=== PATIENT | female | born 1985 | race Hispanic/Latino ===

== ENCOUNTER → 2017-02-08 | Outpatient (CLI) | payer SELFPAY ==
--- NOTE | 2017-02-08 11:41 | Diagnostic Imaging Report ---
EXAMINATION: Hepatic ultrasound. INDICATION: Increased ALT. FINDINGS: The visualized portions of the pancreas appear unremarkable. The liver is fairly homogeneous with no focal lesion seen. Hepatopetal flow in the portal vein is noted. The gallbladder demonstrates no stones or wall thickening. No pericholecystic fluid. The sonographic Zavaleta sign is reportedly negative. The CBD is 5 mm in caliber. The right kidney is 12.8 cm in length with no hydronephrosis or focal lesion. IMPRESSION: Unremarkable exam. Dictated by: Dictated on workstation # [id number]
== END ==
LOC: RAD 08:43
PROVIDERS: ATTEND Family Medicine
DX: R74.0 Nonspecific elevation of levels of transaminase and lactic acid dehydrogenase [LDH] (principal)
CPT/HCPCS: 76705

== ENCOUNTER 2017-03-13 12:53 | Outpatient (CLI) | payer SELFPAY ==
--- NOTE | 2017-03-14 15:54 | Physician Query-Final Dx ---
JENNIFER LONG 03/14/17 1554: Clinic Account Progress/Dx Physician Query: Please give diagnosis Date of Service Mar 13, 2017 at 12:53 EARNEST FITZGERALD MD 03/16/17 0720: Clinic Account Progress/Dx DIAGNOSIS: Diagnosis 1. Decreased movement--reassuring 2. Intrauterine at 15 weeks gestation JENNIFER LONG Mar 14, 2017 15:54 EARNEST FITZGERALD MD Mar 16, 2017 07:20
== END 2017-03-13 13:02 | disposition home or self-care (01) ==
LOC: LDRP 12:53 → WSo 12:53
PROVIDERS: ATTEND Family Medicine
DX: O36.8120 Decreased fetal movements, second trimester, not applicable or unspecified (principal); Z3A.15 15 weeks gestation of pregnancy
CPT/HCPCS: 99212

== ENCOUNTER → 2017-04-28 | Outpatient (CLI) | payer MEDICAID ==
--- NOTE | 2017-04-28 15:23 | Diagnostic Imaging Report ---
INDICATION: survey. TECHNIQUE: Multiple real-time grayscale images were obtained over the gravid uterus. COMPARISON: None FINDINGS: There is a single live fetus in a variable presentation. The cervical length is 3.4 cm. Placenta is posterior. The amniotic fluid volume appears to be normal. survey demonstrates the kidneys, bladder and stomach to be unremarkable. brain posterior fossa evaluation was limited due to position. In addition, the four-chamber heart view and spine is somewhat limited. The cord insertion was visualized and unremarkable. There is a three-vessel cord. Biometrical measurements are as follows: Biparietal 4.77 cm, age 20 weeks 3 days. Head circumference 17.10 cm, age 19 weeks 5 days. Abdominal circumference 15.12 cm, age 20 weeks 3 days. Femur length 3.37 cm, age 20 weeks 4 days. Sonographic estimate age: 20 weeks 2 days. Sonographic estimated date of delivery: 09/13/2017. Estimated Weight: 350 gm (+/- 51 gm). LMP percentile: 50%. heart rate: 167 beats per minute. number: 1 of 1. IMPRESSION: Single live IUP 20 weeks 2 days gestational age. Estimated date of confinement sonographically 09/13/2017. survey is somewhat limited, as described particular four-chamber heart, brain and spine. Followup ultrasound could be performed for further evaluation. Dictated by: Dictated on workstation # [id number]
== END ==
LOC: RAD 14:00
PROVIDERS: ATTEND Family Medicine
DX: Z36.89 Encounter for other specified antenatal screening (principal); Z3A.20 20 weeks gestation of pregnancy
CPT/HCPCS: 76805

== ENCOUNTER → 2017-05-11 | Outpatient (CLI) | payer MEDICAID ==
--- NOTE | 2017-05-11 17:26 | Diagnostic Imaging Report ---
INDICATION: Follow-up incomplete survey. TECHNIQUE: Multiple real-time grayscale images were obtained over the gravid uterus. COMPARISON: 04/28/2017. FINDINGS: ventricles, four-chamber heart, and spine all appear normal on today's study. These areas were not well visualized on the prior study. heart rate is 149 beats per minute. Placenta is posterior with no evidence of previa. Amniotic fluid is qualitatively normal. The fetus is in cephalic presentation. Cervix measures 4.3 cm. IMPRESSION: Limited study performed for completion of incomplete survey on the previous study. The intracranial ventricles, four-chamber heart, and spine appear unremarkable. Cervical length is normal. The fetus is in cephalic presentation. Dictated by: Dictated on workstation # [id number]
== END ==
LOC: RAD 15:46
PROVIDERS: ATTEND Family Medicine
DX: Z36.89 Encounter for other specified antenatal screening (principal); Z3A.00 Weeks of gestation of pregnancy not specified
CPT/HCPCS: 76816

== ENCOUNTER → 2022-09-08 | Outpatient (CLI) | payer MEDICAID, OTHER ==
[~2022-09-08] VITALS: Ht 157.5 cm; Wt 75.0 kg
[~2022-09-08] MED LIST: LIDOCAINE 1% INJ 10 ML VIAL INJ ONE; LIDOCAINE 1% INJ 10 ML VIAL ONE
--- NOTE | 2022-09-08 15:50 | Diagnostic Imaging Report ---
INDICATION: Left breast mass versus infection. Patient presents for left breast aspiration and biopsy using ultrasound guidance. Patient brought to the sonographic suite placed on table in the supine position. Ultrasound imaging of the left breast was performed to evaluate appropriate entry site. Left breast was then prepped and draped in usual sterile fashion. Small amount 1% lidocaine was utilized for local anesthesia. 18-gauge needle was advanced into the area of hypoechoic heterogeneity in the medial aspect of the left breast. Approximately 2 mL of blood-tinged and purulent material was aspirated. Aspiration was limited due to marked thickening of the fluid and organization. Needle was removed and hemostasis was obtained. Patient was also to undergo ultrasound-guided core biopsy of the same area. IMPRESSION: Successful ultrasound-guided left breast aspiration, as described. Fluid will be sent for culture and sensitivity as well as cytology. Dictated by: Dictated on workstation # [id number]
--- NOTE | 2022-09-08 15:54 | Diagnostic Imaging Report ---
INDICATION: Left breast mass versus abscess. Patient presents for ultrasound-guided biopsy. Patient brought to the sonographic suite, placed on table in the supine position. Ultrasound imaging of the left breast was performed to evaluate appropriate entry site. Left breast was then prepped and draped in usual sterile fashion. Small amount of 1% lidocaine was utilized for local anesthesia. A total of 2 core biopsies were obtained of the medial left breast at the area of significant heterogeneity and utilized 14-gauge Achieve needle. A marker clip was deployed. Hemostasis was obtained using manual compression. Patient tolerated the procedure well and left the department in stable condition. IMPRESSION: Successful ultrasound-guided core biopsy of the area of hypoechoic heterogeneity in the medial left breast. Pathology results are currently pending. Dictated by: Dictated on workstation # [id number]
== END ==
LOC: RAD 13:37
PROVIDERS: ATTEND Nurse Practitioner Family
DX: N63.22 Unspecified lump in the left breast, upper inner quadrant (principal)
CPT/HCPCS: 19083; 87070; 87075; 87101; 87205; A4648

== ENCOUNTER 2022-09-20 14:20 | Outpatient (CLI) | payer SELFPAY ==
[~2022-09-20] VITALS: Ht 167.6 cm; Wt 86.2 kg
[2022-09-21] MEDS ORDERED: PROP20TA5 PO (11:40)
[2022-09-21] MEDS ORDERED: SULF1TAB38 PO (12:45)
== END 2022-09-20 17:03 | disposition home or self-care (01) ==
LOC: PREOP 14:20
PROVIDERS: ATTEND Surgery
DX: Z01.818 Encounter for other preprocedural examination (principal)

== ENCOUNTER 2022-09-21 09:58 | Day surgery (SDC) | payer OTHER ==
[2022-09-21] VITALS (11 sets, daily range): BP systolic 141–169; BP diastolic 71–102
[2022-09-21] MEDS ORDERED: LACTATED RINGERS 1,000 ML IV PRN (10:30)
[2022-09-21] MEDS ORDERED: ceFAZolin INJECTION 2,000 MG in NS (IVPB) 50 ML 50 ML IV ONE (10:30)
[2022-09-21] MEDS ORDERED: LIDOCAINE 1% w/EPI 1:100,000 20 ML VIAL ONE (11:17)
[2022-09-21] MEDS ORDERED: PROP20TA5 PO (11:40)
--- NOTE | 2022-09-21 12:00 | Progress Note-Pre Operative ---
Pre-Operative Progress Note Date H&P Reviewed: Sep 21, 2022 Time H&P Reviewed: 11:59 History & Physical: H&P Reviewed, Patient Examed, No changes noted Pre-Operative Diagnosis: LEFT BREAST ABSCESS ANIBAL NASH DO Sep 21, 2022 12:00
[2022-09-21] MEDS ORDERED: MIDAZOLAM 2 MG/2 ML (VERSED) VIAL ONE (12:03)
[2022-09-21] MEDS ORDERED: ONDANSETRON 4 MG/2 ML (SDV) Z0FRAN ONE (12:03)
[2022-09-21] MEDS ORDERED: SEVOFLURANE (ULTANE) 15 ML INHAL SOLN ONE ×2 (12:03→12:41)
[2022-09-21] MEDS ORDERED: LIDOCAINE PF 2% 5 ML VIAL ONE (12:03)
[2022-09-21] MEDS ORDERED: dexAMETHasone INJ 10 MG/ML 1 ML VIAL ONE (12:03)
[2022-09-21] MEDS ORDERED: proPOfol 200 MG/20 ML (DIPRIVAN) VIAL IV ONE ×2 (12:03→12:41)
[2022-09-21] MEDS ORDERED: fentaNYL INJECTION 100 MCG/2 ML VIAL ONE (12:04)
[2022-09-21] MEDS ORDERED: LIDOCAINE 1% w/EPI 1:100,000 20 ML VIAL INJ ONE (12:35)
[2022-09-21] MEDS ORDERED: SULF1TAB38 PO (12:45)
--- NOTE | 2022-09-21 12:47 | Discharge Inst-Simple/Standard ---
Discharge Inst-Standard Discharge Medications New, Converted or Re-Newed RX: Transmitted to Pharmacy Patient Instructions/Follow Up Plan of Care/Instructions/FU: Evelio nurse visit tomorrow. Evelio 1 week. Activity as Tolerated: Yes Discharge Diet: Regular Diet Other Inst to Patient Follow up Appt: Make appointment Evelio nurse tomorrow. Evelio 1 week. Instructions: No strenuous activity. May shower in 24 hours, no tub bath or soaking. Use incentive spirometer at home as directed. No Smoking Skin/Wound Care: Need to irrigate and pack wound daily and as needed. Symptoms to Report: Appetite Changes, Extremity Discoloration, Numbness/Tingling, Swelling Increased, Bleeding Excessive, Eyesight Changes, Pain Increased, Urine Color Change, Constipation(Persistent), Fever over 101 degree F, Pain/Pressure in chest, Urinating Difficulty, Cough Up/Vomit Blood, Heart Beat Irreg/Pounding, Pain/Pressure in jaw, Vaginal Bleeding Increase, Cramps in feet or legs, Lightheadedness, Pain/Pressure in shoulder, Diarrhea(Persistent), Memory Changes Suddenly, Questions/Concerns, Weight gain consecutive days, Dizziness/Fainting, Nausea/Vomiting, Shortness of Breath, Weight gain over 2 pounds If questions or concerns contact your physician Or seek help at emergency department. ANIBAL NASH DO Sep 21, 2022 12:47
--- NOTE | 2022-09-21 12:53 | Anesthesia-General Post-Op ---
General Patient Condition Mental Status/LOC: Same as Preop Cardiovascular: Satisfactory Nausea/Vomiting: Absent Respiratory: Satisfactory Pain: Controlled Complications: Absent Post Op Complications Complications None Follow Up Care/Instructions Patient Instructions None needed. Anesthesia/Patient Condition Patient Condition Patient is doing well, no complaints, stable vital signs, no apparent adverse anesthesia problems. No complications reported per nursing. SARAH CULLEN CRNA Sep 21, 2022 12:53
[2022-09-21] MEDS ORDERED: morphine INJ 10 MG/ML 1ML (SYR OR VIAL) ONE (12:58)
[2022-09-21] MEDS ORDERED: MEPERIDINE (DEMEROL) INJ 50 MG/ML IVP ONE (13:00)
[2022-09-21] MEDS ORDERED: morphine INJ 10 MG/ML 1ML (SYR OR VIAL) IVP ONE (13:00)
[2022-09-21] MEDS ORDERED: fentaNYL INJECTION 100 MCG/2 ML VIAL IVP ONE (13:00)
[2022-09-21] MEDS ORDERED: ONDANSETRON 4 MG/2 ML (SDV) Z0FRAN IVP PRN (13:00)
[2022-09-21] MEDS ORDERED: HYDROcodone/ACETAMINOPHEN 5 MG/325 MG TABLET PO ONE (14:15)
[2022-09-21] MEDS ORDERED: HYDROcodone/ACETAMINOPHEN 5 MG/325 MG TABLET ONE (14:18)
--- NOTE | 2022-09-21 18:38 | OPERATIVE REPORT ---
DATE OF SERVICE: 09/21/2022 PREOPERATIVE DIAGNOSIS: Left breast abscess. POSTOPERATIVE DIAGNOSIS: Left breast abscess. PROCEDURE: Incision and drainage, left breast abscess. SURGEON: Anibal Fraser DO ANESTHESIA: General. ESTIMATED BLOOD LOSS: Minimal. COMPLICATIONS: None. INDICATIONS: The patient is a 37-year-old female with left breast abscess. She has undergone a biopsy previously and antibiotic therapy. She understands risks and benefits of procedure and wished to proceed. Consent was signed in chart. DESCRIPTION OF PROCEDURE: The patient was taken to the operating suite. She was prepped and draped in sterile fashion. Timeout was performed. Local anesthetic was infiltrated over the area of fluctuance, which was just to the medial of the areola. A #15 blade scalpel was used to make a skin incision. Some slight purulent material erupted and culture was obtained. This had a pocket that extended underneath the areola lifting it up. The wound was then irrigated with copious amounts of irrigation, and also an 18-gauge needle was used to obtain a specimen of purulent material as well. The wound was irrigated with copious amounts of irrigation and then packed with iodoform. The area was washed and dried and sterile bandages were applied. The patient tolerated the procedure well with no complications, taken to recovery room in stable condition. Job ID: [id number] DocumentID: [id number] Dictated Date: 09/21/2022 12:50:15 Waiter/Waitress Tourist Class Date: 09/21/2022 18:37:00 Dictated By: ANIBAL FRASER DO
== END 2022-09-21 15:05 | disposition home or self-care (01) ==
LOC: SDC 09:58
PROVIDERS: ATTEND Surgery
DX: N61.1 Abscess of the breast and nipple (principal); E66.01 Morbid (severe) obesity due to excess calories; Z68.31 Body mass index [BMI] 31.0-31.9, adult; Z90.12 Acquired absence of left breast and nipple
CPT/HCPCS: 84703; 87070; 87075; 87081; 87205

== ENCOUNTER → 2022-11-03 | Outpatient (CLI) | payer SELFPAY ==
[~2022-11-03] MED LIST changes: -LIDOCAINE 1% INJ 10 ML VIAL INJ ONE; -LIDOCAINE 1% INJ 10 ML VIAL ONE; +PROP20TA5 PO; +SULF1TAB38 PO
--- NOTE | 2022-11-03 15:37 | Diagnostic Imaging Report ---
INDICATION: Left breast mastodynia. Patient had recent history of left breast abscess, status post drainage. COMPARISON: Correlation is made with prior exam from 09/08/2022. EXAMINATION: Sonographic interrogation of the upper left breast was performed. FINDINGS: There is an area of hypoechogenicity at the 11:30 location of the left breast, 2-3 cm from the nipple, measuring approximately 3.0 x 1.3 cm. This does show some internal vascularity. There is some hypoechogenicity extending towards the skin surface as well. No discrete fluid collection is identified. The internal vascularity does suggest phlegmon. No other abnormality is seen. IMPRESSION: Large area of hypervascular hypoechogenicity at the 11:30 location of the left breast corresponding to the area of pain. This is most consistent with phlegmon. No drainable fluid collection is identified at this time. Follow up to confirm clearing would be recommended. BI-RADS Category 3 Dictated by: Dictated on workstation # [id number]
== END ==
LOC: RAD 13:56
PROVIDERS: ATTEND Surgery
DX: N64.89 Other specified disorders of breast (principal)

== ENCOUNTER → 2022-12-13 | Outpatient (CLI) | payer SELFPAY ==
--- NOTE | 2022-12-13 19:11 | Diagnostic Imaging Report ---
Indication: Left breast abscess. Study was performed for follow-up. Correlation is made with prior ultrasound from 11/03/2022. Sonographic interrogation upper left breast again demonstrates areas of hypoechogenicity with internal debris. One area measures approximately 1.1 x 0.8 x 1.1 cm. A second area measures 1.6 x 0.6 x 1.2 cm. There is vascularity along the margins. There is an area of hypoechogenicity at 12:00 location near the nipple measuring 0.6 x 1.5 x 0.7 cm which shows some vascularity. This again does extend towards the skin surface and is consistent with an area of phlegmon. No new fluid collections are seen. IMPRESSION: BI-RADS Category 3 Inflammatory changes in the left breast with phlegmon and perhaps very small areas of phlegmon versus small abscess at the 11:30 location. Overall appearance has improved when compared with one month earlier. Continued follow-up is recommended to show continued stability and/or resolution. ACR BI-RADS Category 3: Probably benign findings. Result letter will be mailed to the patient. Note: At least 10% of breast cancer is not imaged by mammography. Dictated by: Dictated on workstation # [id number]
== END ==
LOC: RAD 12:46
PROVIDERS: ATTEND Surgery
DX: N61.1 Abscess of the breast and nipple (principal); Z90.12 Acquired absence of left breast and nipple

== ENCOUNTER 2023-01-12 15:07 | Outpatient (CLI) | payer SELFPAY ==
[~2023-01-12] VITALS: Ht 167.6 cm; Wt 87.1 kg
== END 2023-01-12 15:52 | disposition home or self-care (01) ==
LOC: PREOP 15:07
PROVIDERS: ATTEND Surgery
DX: Z01.818 Encounter for other preprocedural examination (principal)

== ENCOUNTER 2023-01-14 06:10 | Day surgery (SDC) | payer SELFPAY ==
[~2023-01-14] VITALS: Ht 167.6 cm; Wt 87.1 kg
[2023-01-14] VITALS (11 sets, daily range): BP systolic 110–158; BP diastolic 71–109
[2023-01-14] MEDS ORDERED: LACTATED RINGERS 1,000 ML 1,000 ML IV PRN (06:30)
[2023-01-14] MEDS ORDERED: ceFAZolin INJECTION 2,000 MG in NS (IVPB) 50 ML 50 ML IV ONE (06:30)
[2023-01-14] MEDS ORDERED: MIDAZOLAM INJ 2 MG/2 ML VIAL ONE (07:12)
[2023-01-14] MEDS ORDERED: LIDOCAINE PF 2% 5 ML VIAL ONE (07:12)
[2023-01-14] MEDS ORDERED: fentaNYL INJECTION 100 MCG/2 ML VIAL ONE ×2 (07:12→10:12)
[2023-01-14] MEDS ORDERED: ONDANSETRON INJECTION 4 MG/2 ML (SDV) ONE ×2 (07:12→11:31)
[2023-01-14] MEDS ORDERED: proPOfol INJECTION 200 MG/20 ML VIAL IV ONE (07:12)
[2023-01-14] MEDS ORDERED: SEVOFLURANE (ULTANE) 15 ML INHAL SOLN ONE ×2 (07:12→09:13)
[2023-01-14] MEDS ORDERED: MIDAZOLAM INJ 2 MG/2 ML VIAL IV ONE (07:15)
[2023-01-14] MEDS ORDERED: LIDOCAINE 2% w/EPI 1:100,000 20 ML VIAL ONE (07:28)
--- NOTE | 2023-01-14 08:19 | Progress Note-Pre Operative ---
Pre-Operative Progress Note Date H&P Reviewed: Jan 14, 2023 Time H&P Reviewed: 08:06 History & Physical: H&P Reviewed, Patient Examed, No changes noted Pre-Operative Diagnosis: left breast cyst ANIBAL NASH DO Jan 14, 2023 08:19
[2023-01-14] MEDS ORDERED: morphine INJ 10 MG/ML 1ML (SYR OR VIAL) IVP ONE (09:45)
[2023-01-14] MEDS ORDERED: fentaNYL INJECTION 100 MCG/2 ML VIAL IVP ONE (09:45)
[2023-01-14] MEDS ORDERED: ONDANSETRON INJECTION 4 MG/2 ML (SDV) IVP PRN (09:45)
[2023-01-14] MEDS ORDERED: MEPERIDINE INJ 50 MG/ML VIAL IVP ONE (09:45)
--- NOTE | 2023-01-14 09:45 | Anesthesia-General Post-Op ---
General Patient Condition Mental Status/LOC: Same as Preop Cardiovascular: Satisfactory Nausea/Vomiting: Absent Respiratory: Satisfactory Pain: Controlled Complications: Absent Post Op Complications Complications None Follow Up Care/Instructions Patient Instructions None needed. Anesthesia/Patient Condition Patient Condition Patient is doing well, no complaints, stable vital signs, no apparent adverse anesthesia problems. No complications reported per nursing. SARAH CULLEN CRNA Jan 14, 2023 09:45
--- NOTE | 2023-01-14 09:47 | Progress Note-Post Operative ---
Post-Operative Progess Note Surgeon (s)/Electric Distribution Engineer (s) Surgeon ANIBAL NASH DO Electric Distribution Engineer: NA Pre-Operative Diagnosis left breast cyst Post-Operative Diagnosis left breast cyst Procedure & Operative Findings Date of Procedure 01/14/23 Procedure Performed/Findings left partial mastectomy Anesthesia Type general Estimated Blood Loss Estimated blood loss (mL): minimal Specimens/Packing Specimens Removed left breast partial mastectomy ANIBAL NASH DO Jan 14, 2023 09:47
[2023-01-14] MEDS ORDERED: DOCU-143 PO (09:48)
[2023-01-14] MEDS ORDERED: ACHD5005 PO (09:48)
--- NOTE | 2023-01-14 09:49 | Discharge Inst-Simple/Standard ---
Discharge Inst-Standard Discharge Medications New, Converted or Re-Newed RX: Transmitted to Pharmacy Patient Instructions/Follow Up Plan of Care/Instructions/FU: 2 weeks Evelio Activity as Tolerated: No Discharge Diet: Regular Diet Other Inst to Patient Follow up Appt: Make appointment for 2 week. Instructions: No lifting greater than 10 pounds. No strenuous activity. May shower in 24 hours, no tub bath or soaking. Use incentive spirometer at home as directed. No Smoking Skin/Wound Care: You have special glue over your incision that will fall off on it's own. Change dressing daily. Keep supportive dressing on. Fluffs and Art bandage. Symptoms to Report: Appetite Changes, Extremity Discoloration, Numbness/Tingling, Swelling Increased, Bleeding Excessive, Eyesight Changes, Pain Increased, Urine Color Change, Constipation(Persistent), Fever over 101 degree F, Pain/Pressure in chest, Urinating Difficulty, Cough Up/Vomit Blood, Heart Beat Irreg/Pounding, Pain/Pressure in jaw, Vaginal Bleeding Increase, Cramps in feet or legs, Lightheadedness, Pain/Pressure in shoulder, Diarrhea(Persistent), Memory Changes Suddenly, Questions/Concerns, Weight gain consecutive days, Dizziness/Fainting, Nausea/Vomiting, Shortness of Breath, Weight gain over 2 pounds If questions or concerns contact your physician Or seek help at emergency department. ANIBAL NASH DO Jan 14, 2023 09:49
[2023-01-14] MEDS ORDERED: morphine INJ 10 MG/ML 1ML (SYR OR VIAL) ONE (10:00)
[2023-01-14] MEDS ORDERED: HYDROcodone/ACETAMINOPHEN 5 MG/325 MG TABLET ONE (11:07)
[2023-01-14] MEDS ORDERED: HYDROcodone/ACETAMINOPHEN 5 MG/325 MG TABLET PO ONE (11:15)
[2023-01-14] MEDS ORDERED: ONDANSETRON INJECTION 4 MG/2 ML (SDV) IVP ONE (11:30)
--- NOTE | 2023-01-18 03:15 | OPERATIVE REPORT ---
DATE OF SERVICE: 01/14/2023 PREOPERATIVE DIAGNOSIS: Left breast abscess. POSTOPERATIVE DIAGNOSIS: Left breast abscess. PROCEDURE: Left partial mastectomy. SURGEON: Anibal Fraser DO ANESTHESIA: General. ESTIMATED BLOOD LOSS: Minimal. COMPLICATIONS: None. INDICATIONS: The patient is a 37-year-old female who has had a left breast cyst, chronic. She had surgical intervention previously. She has continued to have issues with the area. She had a small skin opening, which was draining cystic material. She understands risks and benefits of procedure and wished to proceed. Consent was signed in chart. DESCRIPTION OF PROCEDURE: The patient was taken to the operating suite. She was prepped and draped in sterile fashion. Timeout was performed. Local anesthetic was infiltrated. #15 blade scalpel was used to make an periareolar elliptical incision around the cystic material, but then continued to dissect down through the breast tissue with cautery. The breast tissue encounter a lot of scar tissue and multiple small pockets of cystic breast. Continued to excise all this tissue out as well as the cystic area as well, so skin and breast tissue excised until healthy feeling normal breast tissue present. The wound was then irrigated with copious amounts of irrigation. Hemostasis was achieved. Subcutaneous tissues were then reapproximated using 2-0 Vicryl. The skin was then closed using 4-0 Monocryl in subcuticular fashion. The area was washed and dried and skin Affix was placed over the incision. The patient tolerated the procedure well without complications, taken to recovery room in stable condition. Job ID: [id number] DocumentID: [id number] Dictated Date: 01/17/2023 20:49:49 Band Saw Marker Date: 01/18/2023 03:13:00 Dictated By: ANIBAL FRASER DO
== END 2023-01-14 11:55 | disposition home or self-care (01) ==
LOC: SDC 06:10
PROVIDERS: ATTEND Surgery
DX: N61.1 Abscess of the breast and nipple (principal); N62 Hypertrophy of breast
CPT/HCPCS: 84703; 87081; 88307